=== PATIENT | female | born 1965 | race Two or more races ===

== ENCOUNTER 2023-04-01 13:29 | Emergency (ER) | payer MEDICAID ==
[~2023-04-01] VITALS: Ht 165.1 cm; Wt 65.8 kg
[2023-04-01] MEDS ORDERED: ACETAMINOPHEN 325MG TABLET PO ONE (14:45)
[2023-04-01] MEDS ORDERED: LIDOCAINE 5% PATCH TOP SCH (14:45)
[2023-04-01] MEDS ORDERED: KETOROLAC 60MG/2ML VIAL IM ONE (14:45)
[2023-04-01] MEDS ORDERED: TOPUD PO (15:36)
[2023-04-01] MEDS ORDERED: LIDO1ADH23 TP (15:36)
[2023-04-01] MEDS ORDERED: IBUP-2028 MT (15:36)
[2023-04-01] MEDS ORDERED: METH-653 MT (15:36)
[2023-04-01 16:12] VITALS: BP 133/78
== END 2023-04-01 16:13 | disposition home or self-care (01) ==
LOC: ER 13:29
DX: M25.552 Pain in left hip (principal); J45.909 Unspecified asthma, uncomplicated; Z98.51 Tubal ligation status; Z90.49 Acquired absence of other specified parts of digestive tract; W11.XXXA Fall on and from ladder, initial encounter; Y93.89 Activity, other specified; Y92.89 Other specified places as the place of occurrence of the external cause; Y99.8 Other external cause status
CPT/HCPCS: 73502; 73552; 96372; 99284; J1885; Z7610